=== PATIENT | male | born 1960 | race Hispanic/Latino ===

== ENCOUNTER → 2016-07-29 | Outpatient (REF) | payer OTHER | LOC: M SFHCPLAZ 09:17 | PROVIDERS: ATTEND Family Medicine | DX: R76.8 Other specified abnormal immunological findings in serum (principal) ==

== ENCOUNTER → 2016-08-05 | Outpatient (REF) | payer OTHER ==
[2016-08-05 19:59] LABS: ALBUMIN/GLOBULIN RATIO 1.25 (1.00-1.93); BILIRUBIN,DIRECT 0.2 MG/DL (0.0-0.2); BILIRUBIN,TOTAL 0.6 MG/DL (0.2-1.0); TOTAL PROTEIN 7.2 GM/DL (6.4-8.2)
== END ==
LOC: M SFHCPLAZ 10:05
PROVIDERS: ATTEND Family Medicine
DX: R76.8 Other specified abnormal immunological findings in serum (principal)

== ENCOUNTER 2016-09-23 11:52 | Outpatient (CLI) | payer OTHER ==
[~2016-09-23] VITALS: Ht 165.1 cm; Wt 65.8 kg
[~2016-09-23 11:52] MED LIST: MELO7.5T6 PO
[2016-09-23] MEDS ORDERED: NS 1,000 ML IV ONE (14:45)
[2016-09-23] MEDS ORDERED: PROPOFOL 200 MG/20 ML VIAL As Ordered ONE (15:35)
[2016-09-23] MEDS ORDERED: ePHEDrine SULFATE 25 MG/5 ML(5MG/ML) SYRINGE As Ordered ONE (15:35)
--- NOTE | 2016-09-23 15:37 | ROOR ---
Patient Name: Allan Chaves Procedure Date: 09/23/2016 3:25 PM Date of : 1960 Age: 55 Room: [facility] Gender: Male Note Status: Finalized Procedure: Colonoscopy Indications: Screening for colorectal malignant neoplasm Providers: Jamison GANDHI MD Referring MD: MILY GARIBAY MD Requesting Provider: Medicines: Monitored Anesthesia Care Complications: No immediate complications. Procedure: Pre-Anesthesia Assessment: - The heart rate, respiratory rate, oxygen saturations, blood pressure, adequacy of pulmonary ventilation, and response to care were monitored throughout the procedure. The Colonoscope was introduced through the anus and advanced to the terminal ileum, with identification of the appendiceal orifice and IC valve. The colonoscopy was performed without difficulty. The patient tolerated the procedure well. The quality of the bowel preparation was good. Findings: The perianal and digital rectal examinations were normal. Internal hemorrhoids were found during retroflexion. The hemorrhoids were moderate. The entire examined colon appeared normal on direct and retroflexion views. Impression: - Internal hemorrhoids. - The entire examined colon is normal on direct and retroflexion views. - No specimens collected. Recommendation: - Repeat colonoscopy in 10 years for screening purposes. Jamison Gandhi MD Jamison GANDHI MD 09/23/2016 3:36:45 PM This report has been signed electronically. Number of Addenda: 0 Note Initiated On: 09/23/2016 3:25 PM Estimated Blood Loss: Estimated blood loss: none.
[2016-09-23 16:05] VITALS: BP 131/60
== END 2016-09-23 16:05 ==
LOC: M OPP 11:52
PROVIDERS: ATTEND Internal Medicine Gastroenterology
DX: Z12.11 Encounter for screening for malignant neoplasm of colon (principal); K64.8 Other hemorrhoids; M19.90 Unspecified osteoarthritis, unspecified site; Z86.19 Personal history of other infectious and parasitic diseases; F17.200 Nicotine dependence, unspecified, uncomplicated; Z79.899 Other long term (current) drug therapy